=== PATIENT | female | born 1995 | race African-American/Black ===

== ENCOUNTER 2019-12-14 11:59 | Emergency (ER) | payer MEDICAID ==
[~2019-12-14] VITALS: Ht 180.3 cm; Wt 58.3 kg
[2019-12-14 12:48] VITALS: BP 144/79
== END 2019-12-14 13:48 | disposition home or self-care (01) ==
LOC: ED 12:59
DX: K02.9 Dental caries, unspecified (principal); K08.89 Other specified disorders of teeth and supporting structures; F17.200 Nicotine dependence, unspecified, uncomplicated
CPT/HCPCS: 99283

== ENCOUNTER 2019-12-21 08:35 | Emergency (ER) | payer MEDICAID ==
[~2019-12-21] VITALS: Ht 175.3 cm; Wt 61.6 kg
[2019-12-21 08:44] VITALS: BP 131/84
[2019-12-21] MEDS ORDERED: IBUPROFEN 800 MG TABLET PO ONE (09:00)
[2019-12-21] MEDS ORDERED: IBUPROFEN 800 MG TABLET ONE (09:22)
== END 2019-12-21 09:33 | disposition home or self-care (01) ==
LOC: ED 08:53
DX: K08.89 Other specified disorders of teeth and supporting structures (principal)
CPT/HCPCS: 99283

== ENCOUNTER 2020-06-06 10:34 | Emergency (ER) | payer MEDICAID ==
[~2020-06-06] VITALS: Ht 160 cm; Wt 45.0 kg
[2020-06-06 10:37] VITALS: BP 101/68
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
--- NOTE | 2020-06-06 11:04 | NUR ---
RECEIVED REPORT FROM SHELDON SALAZAR. ASSUMING CARE AT THIS TIME.
--- NOTE | 2020-06-06 11:05 | NUR ---
BEDSIDE REPORT TO MARTIN HERNANDEZ
--- NOTE | 2020-06-06 11:18 | NUR ---
PT AMBULATED TO RESTROOM WITH STEADY GAIT TO PROVIDE URINE SAMPLE. UDS COLLECTED AND TAKEN TO LAB
[2020-06-06 11:38] LABS: MEAN CORPUSCULAR HEMOGLOBIN 27.2 pg (27.0-34.8); MEAN CORPUSCULAR HGB CONC 32.5 g/dL (32.4-35.8); MEAN CORPUSCULAR VOLUME 83.7 fL (80-100); MEAN PLATELET VOLUME 9.4 fL (7.4-10.4); PLATELET COUNT 254 x10^3/uL (130-400); RED CELL DISTRIBUTION WIDTH 14.4 % (9.6-15.2)
[2020-06-06 11:40] LABS: AMPHETAMINE SCREEN, URINE Negative (Negative); BARBITURATE SCREEN, URINE Negative (Negative); BENZODIAZEPINE SCREEN, URINE Positive (Negative); CANNABINOID SCREEN, URINE Positive (Negative); COCAINE SCREEN, URINE Negative (Negative); METHADONE SCREEN, URINE Negative (Negative); OPIATE SCREEN, URINE Negative (Negative)
[2020-06-06 11:42] LABS: ALANINE AMINOTRANSFERASE 18 U/L (12-78); ALBUMIN 3.7 g/dL (3.4-5.0); ANION GAP 4 mmol/L (5-15); CALCIUM 9.1 mg/dL (8.5-10.1); CHLORIDE 113 mmol/L (98-107); CREATININE 0.83 mg/dL (0.55-1.02)
[2020-06-06 11:47] LABS: ALKALINE PHOSPHATASE 56 U/L (45-117); BILIRUBIN,TOTAL 0.7 mg/dL (0.2-1.0); SALICYLATE LEVEL 3.1 mg/dL (2.8-20.0); TOTAL PROTEIN 7.1 g/dL (6.4-8.2)
[2020-06-06 11:49] LABS: BASOPHILS # (AUTO) 0.02 x10^3/uL (0-0.1); BASOPHILS % (AUTO) 0 % (0-1); EOSINOPHILS # (AUTO) 0.01 x10^3/uL (0-0.4); EOSINOPHILS % (AUTO) 0 % (1-7); LYMPHOCYTES # (AUTO) 0.89 x10^3/uL (1-3.4); LYMPHOCYTES % (AUTO) 11 % (22-44); MD SCAN; MONOCYTES # (AUTO) 0.65 x10^3/uL (0.2-0.8); MONOCYTES % (AUTO) 8 % (2-9); NEUTROPHILS # (AUTO) 6.24 x10^3/uL (1.8-6.8); NEUTROPHILS % (AUTO) 80 % (42-75)
--- NOTE | 2020-06-06 12:09 | NUR ---
MICHELINE MCCLENDON CHOPPER OPERATOR AT BEDSIDE FOR ASSESSMENT.
[2020-06-06 12:10] LABS: FREE T4 (FREE THYROXINE) 1.08 ng/dL (0.76-1.46)
--- NOTE | 2020-06-06 12:12 | NUR ---
ALL RESULTS ARE BACK AT THIS TIME. CHART UP FOR RECHECK.
--- NOTE | 2020-06-06 14:16 | NUR ---
REPORT GIVEN TO HEATHER SALAZAR AT [facility]
== END 2020-06-06 16:11 ==
LOC: ED 12:12
DX: F23 Brief psychotic disorder (principal)
CPT/HCPCS: 36415; 80053; 80307; 84439; 84443; 84481; 84703; 85025; 99283; 99285

== ENCOUNTER 2020-06-06 13:01 | Inpatient (IN) | payer MEDICAID ==
[~2020-06-06] VITALS: Ht 180.3 cm; Wt 126.0 kg
[2020-06-06] MEDS ORDERED: DOCUSATE 100 MG CAPSULE PO PRN ×2 (13:30→16:00)
[2020-06-06] MEDS ORDERED: BISACODYL 10 MG SUPP PR PRN (13:30)
[2020-06-06] MEDS ORDERED: ACETAMINOPHEN 325 MG TABLET PO PRN ×2 (13:30→16:00)
[2020-06-06] MEDS ORDERED: ONDANSETRON ODT 4 MG PO PRN (13:30)
[2020-06-06] MEDS ORDERED: QUETIAPINE 25MG TABLET PO PRN (13:30)
[2020-06-06] MEDS ORDERED: LORazepam 1MG TABLET PO PRN (13:30)
[2020-06-06] MEDS ORDERED: POLYETHYLENE GLYCOL 17 GM PACKET PO PRN (13:30)
[2020-06-06 14:18] LABS: MICROSCOPIC INDICATED
[2020-06-06 15:53] VITALS: BP 112/47
[2020-06-06] MEDS ORDERED: ONDANSETRON 2MG/ML, 2ML IVPush PRN (16:00)
[2020-06-06] MEDS ORDERED: PLEASE ENTER HEIGHT AND WEIGHT MC SCH (16:00)
[2020-06-06 19:05] VITALS: BP 112/76
[2020-06-07 06:50] VITALS: BP 107/71
[2020-06-07 07:21] LABS: CHOL/HDL RATIO 2.5; LDL/HDL RATIO 1.3 (0.5-3.0)
[2020-06-08 07:20] VITALS: BP 128/80
[2020-06-08] MEDS: OLANZAPINE ODT 10MG PO SCH (11:58)
[2020-06-08 19:00] VITALS: BP 112/58
[2020-06-09 07:47] VITALS: BP 122/82
[2020-06-09] MEDS: OLANZAPINE ODT 10MG PO SCH (11:45)
[2020-06-09] MEDS ORDERED: PALIPERIDONE 1.5 MG TAB.ER.24 PO ONE (14:00)
[2020-06-09] MEDS ORDERED: PALIPERIDONE PALMITATE 234 MG/1.5 ML IM ONE (14:00)
[2020-06-09] MEDS ORDERED: ARIPIPRAZOLE 400 MG INJ NC IM ONE (14:30)
[2020-06-09 19:54] VITALS: BP 111/72
[2020-06-10 07:09] VITALS: BP 95/79
[2020-06-10 20:00] VITALS: BP 105/65
[2020-06-11 07:26] VITALS: BP 110/77
[2020-06-11] MEDS: ARIPIPRAZOLE 10 MG TABLET PO SCH ×2 (16:00→16:08)
[2020-06-12] MEDS: ARIPIPRAZOLE 10 MG TABLET PO SCH (07:43)
[2020-06-12 07:46] VITALS: BP 130/82
[2020-06-12 19:45] VITALS: BP 124/89
[2020-06-13] MEDS: ARIPIPRAZOLE 10 MG TABLET PO SCH (08:31)
[2020-06-14] MEDS: ARIPIPRAZOLE 10 MG TABLET PO SCH (08:28)
[2020-06-15] MEDS: ARIPIPRAZOLE 10 MG TABLET PO SCH ×2 (08:11→08:13)
[2020-06-15] MEDS ORDERED: ARIP400S3 IM (11:44)
[2020-06-15] MEDS ORDERED: ARIP10TA33 PO (11:44)
[2020-06-16] MEDS: ARIPIPRAZOLE 10 MG TABLET PO SCH (09:10)
== END 2020-06-16 13:00 | disposition home or self-care (01) | DRG 885 ==
LOC: 3E 14:52
PROVIDERS: ADMIT Psychiatry & Neurology Psychosomatic Medicine; ATTEND Psychiatry & Neurology Psychosomatic Medicine
DX: F25.0 Schizoaffective disorder, bipolar type (principal); Z79.899 Other long term (current) drug therapy; Z20.828 Contact with and (suspected) exposure to other viral communicable diseases; E87.8 Other disorders of electrolyte and fluid balance, not elsewhere classified; Z91.19 Patient's noncompliance with other medical treatment and regimen
CPT/HCPCS: 36415; 80061; 81001; 87635; 93005

== ENCOUNTER 2020-08-25 21:47 | Emergency (ER) | payer MEDICAID ==
[~2020-08-25] VITALS: Ht 180.3 cm; Wt 55.4 kg
[~2020-08-25 21:47] MED LIST: ARIP10TA33 PO; ARIP400S3 IM
[2020-08-25 21:58] VITALS: BP 119/79
--- NOTE | 2020-08-25 23:07 | NUR ---
SEEN AND EXAMINED BY PA. PATIENT DISCHARGED WITH PRESCRIPTION AND INSTRUCTION. VERBALIZED UNDERSTANDING. BUS PASS PROVIDED.
== END 2020-08-25 23:09 | disposition home or self-care (01) ==
LOC: ED 22:40
DX: B35.3 Tinea pedis (principal); M79.671 Pain in right foot; M79.672 Pain in left foot; F17.210 Nicotine dependence, cigarettes, uncomplicated; Z59.0 Homelessness
CPT/HCPCS: 99283

== ENCOUNTER 2020-10-09 17:19 | Emergency (ER) | payer MEDICAID ==
[~2020-10-09] VITALS: Ht 185.4 cm; Wt 62.3 kg
[2020-10-09] MEDS ORDERED: SODIUM CHLORIDE FLUSH 10ML SYR IVF ONE (17:30)
[2020-10-09] MEDS ORDERED: SODIUM CHLORIDE 0.9% 1,000ML IVBOLUS ONE ×2 (17:30→21:00)
--- NOTE | 2020-10-09 17:38 | NUR ---
BLOOD DRAWN OFF PIV. SENT TO LAB.
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
--- NOTE | 2020-10-09 17:46 | NUR ---
PER EMS PT RECEIVED 2MG VERSED AND 250ML NS MEND WORKER. PIV MEND WORKER.
--- NOTE | 2020-10-09 17:53 | NUR ---
PT RESTING ON GURNEY W/ EYES CLOSED. TACHYCARDIC, OTHER VS WDL.
[2020-10-09 17:58] LABS: BASOPHILS % (AUTO) 1 % (0-1); EOSINOPHILS % (AUTO) 0 % (1-7); LYMPHOCYTES % (AUTO) 7 % (22-44); MEAN CORPUSCULAR HEMOGLOBIN 27.4 pg (27.0-34.8); MEAN CORPUSCULAR HGB CONC 32.5 g/dL (32.4-35.8); MEAN PLATELET VOLUME 9.1 fL (7.4-10.4); MONOCYTES % (AUTO) 6 % (2-9); NEUTROPHILS % (AUTO) 87 % (42-75); PLATELET COUNT 278 x10^3/uL (130-400); RED BLOOD COUNT 5.52 x10^6/uL (3.82-5.3); RED CELL DISTRIBUTION WIDTH 14.3 % (9.6-15.2)
[2020-10-09 18:02] LABS: ALBUMIN 3.8 g/dL (3.4-5.0); ANION GAP 8 mmol/L (5-15); CALCIUM 9.9 mg/dL (8.5-10.1); CHLORIDE 110 mmol/L (98-107)
[2020-10-09 18:06] LABS: ALANINE AMINOTRANSFERASE 16 U/L (12-78); ALKALINE PHOSPHATASE 76 U/L (45-117); BILIRUBIN,TOTAL 0.8 mg/dL (0.2-1.0); CREATININE 1.26 mg/dL (0.55-1.02)
--- NOTE | 2020-10-09 18:13 | NUR ---
ORTHO VS OBTAINED WHILE TRANSFERING PT TO [facility]. UNABLE TO GET STANDING BP D/T PT ANXIETY. PT TRANSFERED TO [facility] W/O INCIDENT, UNABLE TO PROVIDE URINE SAMPLE. PT TRANSFERED BACK TO BED W/ 1 PERSON ASSIST W/O INCIDENT. PROVIDER UPDATED.
--- NOTE | 2020-10-09 18:24 | NUR ---
PER PT CURRENTLY HOMELESS, DOES NOT STAY AT [facility].
[2020-10-09 18:48] LABS: MD SCAN
--- NOTE | 2020-10-09 19:00 | NUR ---
REPORT FROM BRYON SALAZAR.
--- NOTE | 2020-10-09 19:01 | NUR ---
PT PROVIDED W/ MEAL TRAY, OK PER DR.VAN WESLEY. PT MORE CALM AND COOPERATIVE. RESTING ON GURNEY W/ CALL LIGHT IN REACH AND SIDE RAILS UPX2. TACHYCARDIC, OTHER VS WDL. NADN.
--- NOTE | 2020-10-09 19:02 | NUR ---
REPORT GIVEN TO CHRISTIE SALAZAR.
--- NOTE | 2020-10-09 20:45 | NUR ---
PATIENT RESTING ON STRETCHER WITH EYES CLOSED, WAKES EASILY, JUMPS WHEN SOFTLY TOUCHED ON HAND. FINISHED APPROXIMATELY 80% OF PROVIDED MEAL. DENIES COMPLAINT, NAD, VSS, CALL BEAL WITHIN REACH, WILL CONTINUE TO MONITOR.
[2020-10-09] MEDS ORDERED: ARIPIPRAZOLE 10 MG TABLET PO ONE (21:30)
[2020-10-09] MEDS ORDERED: ARIPIPRAZOLE 400 MG INJ NC IM ONE (21:30)
[2020-10-09] MEDS ORDERED: ARIPIPRAZOLE 10 MG TABLET ONE (21:31)
[2020-10-09 21:45] LABS: HCG UR SG 1.026 (1.003-1.030); MICROSCOPIC AUTO
[2020-10-09 23:32] VITALS: BP 116/80
== END 2020-10-09 23:36 | disposition home or self-care (01) ==
LOC: ED 20:09
DX: E86.0 Dehydration (principal); F20.0 Paranoid schizophrenia; F29 Unspecified psychosis not due to a substance or known physiological condition; R55 Syncope and collapse; R42 Dizziness and giddiness; R00.0 Tachycardia, unspecified
CPT/HCPCS: 36415; 80053; 81001; 81025; 85025; 87086; 93005; 96360; 96361; 99284; J7030

== ENCOUNTER 2021-06-05 09:11 | Emergency (ER) | payer MEDICAID ==
[~2021-06-05] VITALS: Ht 177.8 cm; Wt 68.2 kg
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
[2021-06-05 10:19] LABS: ALANINE AMINOTRANSFERASE 58 U/L (12-78); ALBUMIN 3.9 g/dL (3.4-5.0); ANION GAP 13 mmol/L (5-15); CALCIUM 9.5 mg/dL (8.5-10.1); CHLORIDE 103 mmol/L (98-107); CREATININE 1.05 mg/dL (0.55-1.02); SALICYLATE LEVEL 2.2 mg/dL (2.8-20.0)
[2021-06-05 10:23] LABS: BASOPHILS % (AUTO) 1 % (0-1); EOSINOPHILS % (AUTO) 0 % (1-7); LYMPHOCYTES % (AUTO) 15 % (22-44); MEAN CORPUSCULAR HEMOGLOBIN 27.3 pg (27.0-34.8); MEAN CORPUSCULAR HGB CONC 33.2 g/dL (32.4-35.8); MEAN PLATELET VOLUME 10.5 fL (7.4-10.4); MONOCYTES % (AUTO) 8 % (2-9); NEUTROPHILS % (AUTO) 77 % (42-75); PLATELET COUNT 196 x10^3/uL (130-400); RED BLOOD COUNT 4.43 x10^6/uL (3.82-5.3); RED CELL DISTRIBUTION WIDTH 13.4 % (9.6-15.2)
--- NOTE | 2021-06-05 10:24 | NUR ---
PT ATTEMPTING TO GET OUT OF BED, PT ASSISTED BACK TO BED WITH TECH HELP. PT TOOK OFF MONITORING EQUIPMENT. MONITORING EQUIPMENT REAPPLIED. VSS. ROOM SECURED EXCEPT FOR WALL WITH MONITORING EQUIPMENT. SITTER OUTSIDE ROOM IN DIRECT LINE OF SIGHT.
--- NOTE | 2021-06-05 10:27 | NUR ---
ATTEMPTED TO GET URINE WITHOUT SUCCESS. PROVIDER ADVISED.
[2021-06-05 10:30] LABS: ALKALINE PHOSPHATASE 60 U/L (45-117); TOTAL PROTEIN 7.6 g/dL (6.4-8.2)
[2021-06-05] MEDS ORDERED: OLANZAPINE 10 MG INJ IM ONE ×4 (10:50→14:00)
[2021-06-05] MEDS ORDERED: SODIUM CHLORIDE 0.9% 1,000ML IVBOLUS ONE (11:30)
--- NOTE | 2021-06-05 11:55 | NUR ---
PT TOOK OFF MONITORING EQUIPMENT AND STOOD UP. TECH ASSISTED PT BACK TO BED. PT PULLED IV OUT. PT ASKED TCH WHERE SHE WAS, BUT DID NOT RESPOND TO QUESTIONS AFTER EXCHANGE. PT REFUSING TO LET RN PUT MONITOING ERQUIPMENT BACK ON OR RESTART IV.
--- NOTE | 2021-06-05 11:57 | NUR ---
ROOM SECURED EXCEPT FOR WALL WITH MONITORING EQUIPMENT. SITTER OUTSIDE ROOM IN DIRECT LINE OF SIGHT.
[2021-06-05] MEDS ORDERED: DIPHENHYDRAMINE 50 MG/ML, 1ML ONE ×2 (12:00→13:29)
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
[2021-06-05] MEDS ORDERED: DIPHENHYDRAMINE 50 MG/ML, 1ML IM ONE (14:00)
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
[2021-06-05] MEDS ORDERED: HALOPERIDOL 5 MG/ML IM PRN (18:30)
[2021-06-05] MEDS ORDERED: HALOPERIDOL 5 MG/ML ONE (18:50)
--- NOTE | 2021-06-05 19:05 | NUR ---
BEDSIDE REPORT RECEIVED FROM BERNARDINO SALAZAR
--- NOTE | 2021-06-05 19:07 | NUR ---
DURING BEDSIDE REPORT, PT AWAKE AND INCREASINGLY AGITATED WITH THIS RN AND TREVON RN. PT YELLING AND UNABLE, UNWILLING TO FOLLOW COMMANDS. SECURITY CALLED DUE TO INCREASED AGGRESIVE AND HOSTILE BEHAVIOR AND AT BEDSIDE. PT MEDICATED PER EMAR FOR AGITATION. SITTER REMAINS IN LINE OF SIGHT, SAFETY PRECAUTIONS IN PLACE. WILL CONTINUE TO CLOSELY MONITOR.
[2021-06-05] MEDS ORDERED: ARIPIPRAZOLE 10 MG TABLET PO SCH (21:00)
[2021-06-05] MEDS ORDERED: ARIPIPRAZOLE 10 MG TABLET ONE (21:22)
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
--- NOTE | 2021-06-05 23:17 | NUR ---
PT RETURNED TO DEPARTMENT BY RICCARDO. PT RESTING CALMLY WITH EYES CLOSED ON GURNICOLAS, NADN, VSS. ROOM SECURED, SAFETY ESPOSITO DOWN, SAFETY PRECAUTIONS IN PLACE. SITTER WITHIN VIEW.
--- NOTE | 2021-06-06 01:04 | NUR ---
Report from Megan SALAZAR
--- NOTE | 2021-06-06 01:08 | NUR ---
BEDSIDE REPORT TO CLEO SALAZAR
--- NOTE | 2021-06-06 01:14 | NUR ---
Pt resting comfortably, appears to be sleeping. Respirations even and unlabored. SI precautions in place and sitter at doorway
--- NOTE | 2021-06-06 03:12 | NUR ---
Pt resting comfortably, appears to be sleeping. Respirations even and unlabored. SI precautions in place and sitter at doorway
--- NOTE | 2021-06-06 04:29 | NUR ---
Pt resting comfortably, appears to be sleeping. Respirations even and unlabored. SI precautions in place and sitter at doorway
--- NOTE | 2021-06-06 05:59 | NUR ---
Pt resting comfortably, appears to be sleeping. Respirations even and unlabored. SI precautions in place and sitter at doorway
--- NOTE | 2021-06-06 06:57 | NUR ---
REPORT TO RAJENDRA SALAZAR
--- NOTE | 2021-06-06 07:10 | NUR ---
REPORT FROM CLEO SALAZAR, ASSUME CARE OF PT AT THIS TIME. PT SLEEPING, SITTER AT DOORWAY.
--- NOTE | 2021-06-06 08:04 | NUR ---
PT SLEEPING, NAD, SITTER AT DOORWAY.
--- NOTE | 2021-06-06 08:37 | NUR ---
ED MEAL TRAY BY BS, PT SLEEPING/NAD. SITTER AT DOORWAY.
--- NOTE | 2021-06-06 09:30 | NUR ---
PT SLEEPING, NAD, SITTER AT DOORWAY.
--- NOTE | 2021-06-06 10:34 | NUR ---
PT SLEEPING, NAD. SITTER AT DOORWAY.
--- NOTE | 2021-06-06 11:41 | NUR ---
PT SLEEPING, NAD-EVEN RISE AND FALL OF CHEST. SITTER AT DOORWAY.
--- NOTE | 2021-06-06 12:52 | NUR ---
PT CONTINUES TO SLEEP, NAD. LUNCH TRAY WAITING. SITTER AT DOORWAY.
--- NOTE | 2021-06-06 14:02 | NUR ---
PT EATING LUNCH, COOPERATIVE WITH STAFF AT THIS TIME. SITTER AT DOORWAY-AWARE OF NEED FOR URINE SPECIMEN.
[2021-06-06 14:03] VITALS: BP 132/78
--- NOTE | 2021-06-06 14:15 | NUR ---
report from MARTIN Goldman
--- NOTE | 2021-06-06 14:24 | NUR ---
PT SLEEPING ON GURNEY, RESPIRATIONS EVEN AND UNLABORED. NADN. SITTER IN VIEW, PT IN SAFE ENVIRONMENT.
--- NOTE | 2021-06-06 15:31 | NUR ---
PT CONTINUES SLEEPING ON GURNEY, RESPIRATIONS EVEN AND UNLABORED. NADN. SITTER IN VIEW, PT IN SAFE ENVIRONMENT. NO NEEDS AT THIS TIME
--- NOTE | 2021-06-06 16:31 | NUR ---
PT RESTING ON MARTIN BOJORQUEZ. SITTER IN VIEW. PT IN SAFE ENVIRONMENT. NO NEEDS AT THIS TIME
--- NOTE | 2021-06-06 17:11 | NUR ---
REPORT GIVEN TO TAMIKO AT [facility], TAMIKO STATED SHE WOULD TALK TO HER MD
--- NOTE | 2021-06-06 17:25 | NUR ---
PT UPDATED ON POC. DIET TRAY ORDERED. AWAITING [facility] TO TRANSFER PT TO [facility]
--- NOTE | 2021-06-06 18:54 | NUR ---
PT AMBULATORY WITH [facility] TO DC TO [facility]. PT UPDATED ON POC
== END 2021-06-06 18:43 ==
LOC: EDBD → MERGE 09:11 → ED 22:00
DX: S80.211A Abrasion, right knee, initial encounter (principal); F29 Unspecified psychosis not due to a substance or known physiological condition; X58.XXXA Exposure to other specified factors, initial encounter; Y93.89 Activity, other specified; Y92.89 Other specified places as the place of occurrence of the external cause; Y99.8 Other external cause status
CPT/HCPCS: 36415; 80053; 80299; 80320; 84443; 85025; 96372; 99285; J1630; 80329; 99283; G0480